=== PATIENT | female | born 1970 | race Caucasian/White ===

== ENCOUNTER 2017-05-08 15:21 | Emergency (ER) | payer OTHER ==
--- NOTE | 2017-05-08 15:28 | EDPHY ---
H & P Time Seen by Provider: 05/08/17 15:28 HPI/ROS: 46-year-old female presents complaining of possible bug bite to her right wrist yesterday, initially it was a clear fluid-filled vesicle, today it appears to have an off-white discharge and a lymphangitic streak up her arm on the left approaching her left axilla. No fever or chills No allergies to medicines Review of systems As per HPI General no fever no chills no weakness HEENT no eye pain no eye discharge. No eye redness, no sore throat Respiratory no cough, no shortness of breath Cardiac no chest pain, no peripheral edema GI no abdominal pain, no diarrhea, no constipation, no nausea, no vomiting no flank pain, no hematuria, no dysuria Musculoskeletal no myalgias, no joint pain Heme no easy bruising, no easy bleeding Endo no polyuria, no polydipsia Skin positive rashes, no pruritus Neuro no syncope, no dizziness, no headaches Psych is no suicidal ideation, no homicidal ideation Past Medical/Surgical History: Prior history of MRSA infection Social History: Denies alcohol or drug use Smoking Status: Never smoked Physical Exam: [age] year female alert and oriented no acute distress nontoxic appearance afebrile HEENT atraumatic normocephalic, extraocular muscles intact, anicteric Oropharynx negative for erythema negative exudate, tolerating her own secretions Neck supple no meningismus Lungs clear to auscultation bilaterally Heart regular rate and rhythm without murmur rub or gallop Abdomen nondistended normoactive bowel sounds soft nontender Back no CVA tenderness, no step-offs, no spinal tenderness Extremities no cyanosis clubbing or edema Except left arm At ulnar aspect of lateral left wrist 1 cm pustule, with lymphangitic streak extending from pustule to left axilla No crepitus, no fluctuance, no other vesicles Neuro alert and oriented, no focal deficits Constitutional: Initial Vital Signs Temperature (C) 36.9 C 05/08/17 15:27 Heart Rate 78 05/08/17 15:27 Respiratory Rate 18 05/08/17 15:27 Blood Pressure 106/79 05/08/17 15:27 O2 Sat (%) 100 05/08/17 15:27 O2 Delivery Mode Room Air Allergies/Adverse Reactions: No Known Allergies Allergy (Unverified 05/08/17 15:35) Home Medications: Medication Instructions Recorded Amoxicillin/Clavulanate Pot 875 mg PO BID #20 tab 05/08/17 [Augmentin 875 MG TAB (*)] Doxycycline Hyclate [Vibramycin 100 mg PO BID #20 cap 05/08/17 100 MG (*)] Estrogens,Esterified [Menest] 05/08/17 Progesterone 05/08/17 Testosterone Micronized 05/08/17 Medical Decision Making ED Course/Re-evaluation: Patient seen and evaluated for pustule with lymphangitic streak on left arm. Differential diagnosis Infected insect bite with lymphangitic streak Impression left arm infected insect bite with lymphangitis Plan Discussed with Dr. Musa from Infectious Disease Will give 1st dose of vancomycin IV piggyback Will discharge home on Augmentin and doxycycline with close follow-up Patient advised to return if worsening. - Data Points Laboratory Results: Laboratory Results 05/08/17 16:25 05/08/17 16:25 05/08/17 05/08/17 05/08/17 16:25 16:25 16:25 WBC 8.08 10^3/uL 10^3/uL (3.80-9.50) RBC 4.59 10^6/uL 10^6/uL (4.18-5.33) Hgb 13.2 g/dL g/dL (12.6-16.3) Hct 39.7 % % (38.0-47.0) MCV 86.5 fL fL (81.5-99.8) MCH 28.8 pg pg (27.9-34.1) MCHC 33.2 g/dL g/dL (32.4-36.7) RDW 13.2 % % (11.5-15.2) Plt Count 189 10^3/uL 10^3/uL (150-400) MPV 12.5 fL H fL (8.7-11.7) Neut % (Auto) 75.2 % H % (39.3-74.2) Lymph % (Auto) 15.3 % % (15.0-45.0) Holmes % (Auto) 7.1 % % (4.5-13.0) Eos % (Auto) 1.5 % % (0.6-7.6) Baso % (Auto) 0.7 % % (0.3-1.7) Nucleat RBC Rel Count 0.0 % % (0.0-0.2) Absolute Neuts (auto) 6.07 10^3/uL 10^3/uL (1.70-6.50) Absolute Lymphs (auto) 1.24 10^3/uL 10^3/uL (1.00-3.00) Absolute Monos (auto) 0.57 10^3/uL 10^3/uL (0.30-0.80) Absolute Eos (auto) 0.12 10^3/uL 10^3/uL (0.03-0.40) Absolute Basos (auto) 0.06 10^3/uL 10^3/uL (0.02-0.10) Absolute Nucleated RBC 0.00 10^3/uL 10^3/uL (0-0.01) Immature Gran % 0.2 % % (0.0-1.1) Immature Gran # 0.02 10^3/uL 10^3/uL (0.00-0.10) VBG Lactic Acid 0.8 mmol/L mmol/L (0.7-2.1) Sodium 141 mEq/L mEq/L (134-144) Potassium 3.7 mEq/L mEq/L (3.5-5.2) Chloride 106 mEq/L mEq/L (97-110) Carbon Dioxide 21 mEq/l L mEq/l (22-31) Anion Gap 14 mEq/L mEq/L (8-16) BUN 15 mg/dL mg/dL (7-23) Creatinine 0.7 mg/dL mg/dL (0.6-1.0) Estimated GFR > 60 Glucose 85 mg/dL mg/dL (70-100) Calcium 9.6 mg/dL mg/dL (8.5-10.4) Medications Given: Discontinued Medications Acetaminophen (Tylenol) 1,000 mg PO EDNOW ONE Stop: 05/08/17 18:50 Last Admin: 05/08/17 18:52 Dose: 1,000 mg Vancomycin HCl 1.25 gm/ Sodium (Chloride) 250 mls @ 166.67 mls/hr IV EDNOW ONE PRN Reason: Protocol Stop: 05/08/17 18:08 Last Admin: 05/08/17 17:08 Dose: 250 mls Departure - Departure Disposition: Home, Routine, Self-Care Clinical Impression: Skin pustule, Acute lymphangitis of upper arm Condition: Good Instructions: Doxycycline (By mouth), Amoxicillin/Clavulanate Potassium (By mouth), Lymphangitis (ED) Referrals: [facility] [Other] - As per Instructions Prescriptions: Amoxicillin/Clavulanate Pot [Augmentin 875 MG TAB (*)] 875 mg PO BID #20 tab Doxycycline Hyclate [Vibramycin 100 MG (*)] 100 mg PO BID #20 cap
[2017-05-08] MEDS ORDERED: VANCOMYCIN 1.25 GM in NS 250 ML IV ONE (16:39)
[2017-05-08 16:42] LABS: % IMMATURE GRANULYOCYTES 0.2 % (0.0-1.1); ABSOLUTE IMMATURE GRANULOCYTES 0.02 10^3/uL (0.00-0.10); ADD DIFF? NO; ADD MORPH? NO; ADD SCAN? NO; ATYPICAL LYMPHOCYTE FLAG 0 (0-99); FRAGMENT RBC FLAG 0 (0-99); HEMATOCRIT 39.7 % (38.0-47.0); HEMOGLOBIN 13.2 g/dL (12.6-16.3); LEFT SHIFT FLG 0 (0-99); LIPEMIA HEMOLYSIS FLAG 80 (0-99); MEAN CELL HEMOGLOBIN 28.8 pg (27.9-34.1); MEAN CELL HEMOGLOBIN CONCENTR. 33.2 g/dL (32.4-36.7); MEAN CELL VOLUME 86.5 fL (81.5-99.8); MEAN PLATELET VOLUME 12.5 fL (8.7-11.7); PLATELET CLUMPS FLAG 0 (0-99); PLATELET COUNT 189 10^3/uL (150-400); RED BLOOD CELL COUNT 4.59 10^6/uL (4.18-5.33); RED CELL DISTRIBUTION WIDTH 13.2 % (11.5-15.2)
[2017-05-08 16:54] LABS: ANION GAP 14 mEq/L (8-16); CALCIUM 9.6 mg/dL (8.5-10.4); CARBON DIOXIDE 21 mEq/l (22-31); CHLORIDE 106 mEq/L (97-110); CREATININE 0.7 mg/dL (0.6-1.0); GLOMERULAR FILTRATION RATE > 60; GLUCOSE 85 mg/dL (70-100); POTASSIUM 3.7 mEq/L (3.5-5.2); SODIUM 141 mEq/L (134-144)
[2017-05-08] MEDS ORDERED: ACETAMINOPHEN 500 MG TAB PO ONE (18:49)
[2017-05-08 18:55] VITALS: BP 105/75; PULSE 79; RESP 16; TEMP 99; O2SAT 96
== END 2017-05-08 18:54 | disposition home or self-care (01) ==
LOC: CED 15:21
DX: L08.9 Local infection of the skin and subcutaneous tissue, unspecified (principal); I89.1 Lymphangitis
CPT/HCPCS: 80048-PO; 83605-PO; 85025-PO; 96365; 96366; J3370